=== PATIENT | female | born 1980 | race Caucasian/White ===

== ENCOUNTER 2018-04-13 21:55 | Inpatient (IN) | payer OTHER ==
[~2018-04-13] VITALS: Ht 162.6 cm; Wt 60.9 kg
--- NOTE | ~2018-04-13 | EKG ---
[place] [address] [address] [facility] [place] [address] ELECTROCARDIOGRAM REPORT Name: ROSY BURNS Room #: 353-P [facility] ..#: [id number] Admission: 04/14/18 Attend Phys: Roosevelt Lewis Discharge: 04/14/18 Date of : 78 Report #: [id number] THIS REPORT FOR: //name// [facility] ED Test Date: 2018-04-13 Test Time: 22:44:40 Pat Name: ROSY BURNS Department: Room: Gender: F [employer]: [place] : 1980 Requested By: Rudy Rubio Order Number: [id number] MD: Walt Corbin Measurements Intervals [place] Rate: 62 P: NC: QRS: 76 QRSD: 117 T: 66 QT: 447 QTc: 454 Interpretive Statements Sinus rhythm with first-degree AV block, sinus arrhythmia Artifact in lead(s) I,aVR,aVL,V1,V2 No previous ECG available for comparison Electronically Signed On 04-14-2018 8:28:59 CDT by Walt Corbin [email or web address] <ELECTRONICALLY SIGNED> By: Walt Corbin MD, [facility] 04/14/18 0828 [id number] Walt Corbin MD, [facility] /EPI
[2018-04-13 21:55] VITALS: BP 100/55
[2018-04-13 22:39] LABS: ABSOLUTE NEUTROPHILS 3.8 thou/uL (1.4-8.2); BASOPHILS 0.9 % (0.0-2.0); EOSINOPHILS 1.5 % (0.0-3.0); LYMPHOCYTES 43.8 % (24.0-44.0); MCH 33.3 pg (26.0-34.0); MCHC 34.9 g/dL (28.0-37.0); MCV 95.5 fL (80.0-100.0); MONOCYTES 6.9 % (1.0-8.0); PLATELET COUNT 323 thou/uL (150-400); POLYS 46.9 % (36.0-66.0); RBC 4.19 mil/uL (4.20-5.00); WBC 8.1 thou/uL (4.0-11.0)
[2018-04-13 22:44] LABS: ANION GAP 13 mmol/L (7-16); BUN 12 mg/dL (7-18); CALCIUM 8.3 mg/dL (8.5-10.1); CHLORIDE 102 mmol/L (98-107); CO2 20 mmol/L (21-32); CREATININE 0.8 mg/dL (0.6-1.0); GLUCOSE 152 mg/dL (74-106); POTASSIUM 3.4 mmol/L (3.5-5.1); SODIUM 135 mmol/L (136-145)
[2018-04-13 22:53] LABS: ALBUMIN 3.4 g/dL (3.4-5.0); MAGNESIUM 2.1 mg/dL (1.8-2.4); SGOT 25 U/L (15-37); SGPT 13 U/L (30-65); TOTAL BILIRUBIN 0.4 mg/dL (<0.1-1.0); TOTAL PROTEIN 6.3 g/dL (6.4-8.2); TROPONIN-I < 0.04 ng/mL (<0.06)
[2018-04-13 22:55] LABS: APTT 30.1 Seconds (24.5-32.8); PROTIME 10.4 Seconds (9.3-11.4)
[2018-04-14 01:09] VITALS: BP 80/44
[2018-04-14 01:28] VITALS: BP 81/51
[2018-04-14 01:45] VITALS: BP 89/68
== END 2018-04-14 03:34 | disposition left against medical advice (07) | DRG 101 ==
LOC: ER 21:55 → EROBS 04-14 00:41 → 3W 04-14 01:29
PROVIDERS: Emergency Medicine
DX: G40.909 Epilepsy, unspecified, not intractable, without status epilepticus (principal); Z53.21 Procedure and treatment not carried out due to patient leaving prior to being seen by health care provider; F17.210 Nicotine dependence, cigarettes, uncomplicated; R42 Dizziness and giddiness; R55 Syncope and collapse; F10.129 Alcohol abuse with intoxication, unspecified; Z88.8 Allergy status to other drugs, medicaments and biological substances; Z90.13 Acquired absence of bilateral breasts and nipples; Q21.1 Atrial septal defect; Z86.73 Personal history of transient ischemic attack (TIA), and cerebral infarction without residual deficits; Z87.01 Personal history of pneumonia (recurrent); Z72.89 Other problems related to lifestyle; Z85.43 Personal history of malignant neoplasm of ovary; Z79.899 Other long term (current) drug therapy; Z90.710 Acquired absence of both cervix and uterus; Z85.3 Personal history of malignant neoplasm of breast
CPT/HCPCS: 10879